=== PATIENT | male | born 1995 | race Caucasian/White ===

== ENCOUNTER 2018-12-16 13:52 | Emergency (ER) | payer OTHER ==
[2018-12-16] MEDS ORDERED: HYDROmorphONE/DILAUDID 2 MG/ML INJ IVP ONE ×2 (14:16→17:37)
[2018-12-16] MEDS ORDERED: NS 500 ML IV ONE (14:19)
--- NOTE | 2018-12-16 14:29 | EDPHY ---
H & P Time Seen by Provider: 12/16/18 14:03 HPI/ROS: HPI Ski accident, right shoulder pain, right back pain. 23-year-old male by ambulance. He was skiing at the [email or web address]. He tripped over his skis, fell forward impacting his right posterior lateral shoulder. He complains of isolated pain to the right posterior lateral shoulder as well as some paraspinal pain upper thoracic in adjacent to his right scapula. He denies hitting his head. He was wearing a helmet. No loss of consciousness. He denies any neck pain. Denies any other extremity pain. No loss of sensation or weakness in his extremities. An IV was established by EMS. He received 100 mcg of IV fentanyl and route. ROS: Constitutional: No fever, no chills. No weakness. Eyes: No discharge. No changes in vision. ENT: No sore throat. No nasal congestion or rhinorrhea. Respiratory: No cough. No shortness of breath. Cardiac: No chest pain, no palpitations. Gastrointestinal: No abdominal pain, no vomiting, no diarrhea. Genitourinary: No hematuria. No dysuria or increased frequency with urination. Musculoskeletal: As above. No neck pain. As above. Skin: No rashes. Neurological: No headache. No focal weakness or altered sensation. Past medical history: Hypertrophic cardiomyopathy. He is not currently on any medications. Social history: Nonsmoker. Here by himself. No alcohol. Physical Exam: General Appearance: Alert, no distress. He is in a cervical collar. This patient is responding to questions appropriately and in full sentences. This patient appears well-hydrated and well-nourished. Head: Normocephalic atraumatic. Face: Facial bones are stable on palpation. Eyes: Pupils equal and round and reactive to light, no pallor or injection. No lid erythema or edema. ENT, Mouth: Mucous membranes moist. Dentition is intact. No malocclusion of the jaw. No tongue lacerations or abrasions. Pharynx is clear. The bilateral nasal canals are clear. No septal hematoma. Respiratory: There are no retractions, lungs are clear to auscultation with good air movement bilaterally. Chest wall is stable to AP and lateral palpation. Cardiovascular: Regular rate and rhythm. No murmur. Gastrointestinal: Abdomen is soft and nontender, no masses, bowel sounds normal. Neurological: Motor sensory function is intact. Cranial nerves are normal. Cerebellar function intact. Skin: Warm and dry, no rashes. No lacerations, abrasions or contusions. Musculoskeletal: Neck is supple and nontender. The trachea is midline. No midline cervical, thoracic, lumbar or sacral tenderness on palpation. No flank tenderness on palpation. He does have some paraspinal and para scapular pain at the level of T7 and T8. No bony step-off or deformity noted on palpation of this area. He has a superficial abrasion noted over the posterior lateral aspect of the right shoulder. He does have some mild tenderness on palpation over the right AC joint. No obvious deformity on palpation of this area. The glenohumeral joint does appear intact. The proximal humerus is nontender on palpation. The axillary nerve distribution is intact. The right upper extremity is neurovascularly intact. Extremities are symmetrical, full range of motion except noted. All joints in the bilateral upper and bilateral lower extremities range without pain or impingement except. No tenderness on palpation of the long bones in the bilateral upper and bilateral lower extremities except noted. Psychiatric: No agitation. No depression. Database: EKG: Imaging: CT chest and thorax with IV contrast: Significant for transverse process fractures at T7 and T8. No compression fracture. No other significant pathology seen. Results were discussed with staff radiologist Dr. Luis F Lindsey. He recommends MRI of the thoracic spine and an isolated right shoulder x-ray to further evaluate. MRI of thoracic spine: Transverse process fracture on the right side T7 and T8 as noted above on CT. Otherwise unremarkable study. No cord involvement. Results were discussed with staff radiologist Dr. Luis F Lindsey. Right shoulder x-ray series: probable type to AC joint separation. Interpreted by me. Procedures: Emergency department course: Triage vital signs reviewed and are normal. IV was established by EMS. After my evaluation the patient received 0.5 mg of IV hydromorphone for pain control. He will be started on IVs normal saline and given 500 cc of IV normal saline. CT chest with IV contrast will be obtained to evaluate for scapular versus spinal injury as well as to evaluate the right shoulder. 3:20 p.m., patient re-evaluated, comfortable at this time. Results of his CT scan discussed with him. Need for right shoulder x-ray series as well as MRI of thoracic spine discussed. He endorses. 5:30 p.m., the patient was given 30 mg of IV Toradol and another 0.5 mg of IV hydromorphone for pain control. We are currently awaiting MRI results. 5:35 p.m., spoke with Dr. Silver Huitron Of the neuro spine service. Case reviewed with him in detail. He feels the patient can be discharged with a [place] brace and follow up with either their service or his primary care physician. Diagnosis of possible low-grade right shoulder AC joint sprain discussed as well. The right upper extremity is neurovascular intact. Patient re-evaluated at 5:45 p.m., repeat neurologic Assessment is nonfocal. His pain is currently well controlled. Plan for discharge in [place] brace discussed and follow-up as noted above. Patient feels comfortable with this. He will be fitted for the [place] brace in the emergency department and then discharged. Return to emergency department precautions were reviewed with him. All of his questions were answered. He was discharged from the emergency department in good condition with his friend who is driving. The patient was contacted this afternoon on December 18. Results of his right shoulder x-ray discussed with him. He will follow up with his life insurance specialist for re-evaluation when he returns home to [place]. He is on his way there now. He will pick pulling machine tender a sling in the emergency department shortly. He is feeling better and currently has no significant complaints. Please see case management note. Differential Diagnosis: The differential diagnosis on this patient includes but is not limited to right scapular fracture, right posterior rib fractures, right shoulder injury. This represents a partial list of diagnoses considered. These considerations are based on history, physical exam, past history, reassessment and diagnostic testing. Smoking Status: Never smoked Constitutional: Initial Vital Signs Temperature (C) 37.1 C 12/16/18 13:52 Heart Rate 69 12/16/18 13:52 Respiratory Rate 14 12/16/18 13:52 Blood Pressure 129/73 H 12/16/18 13:52 O2 Sat (%) 98 12/16/18 13:52 O2 Delivery Mode Room Air Allergies/Adverse Reactions: cotton wood Allergy (Uncoded 12/16/18 13:59) Home Medications: Medication Instructions Recorded Hydrocodone/APAP 5/325 [Cutler 1 - 2 tab PO Q4-6PRN PRN #14 tab 12/16/18 5/325 (*)] Medical Decision Making - Data Points Medications Given: Discontinued Medications Hydrocodone Bitart/Acetaminophen ([place] 5/325mg Prepack#6) 1 btl TAKEHOME EDNOW ONE Stop: 12/16/18 18:23 Last Admin: 12/16/18 18:51 Dose: 1 btl Hydromorphone HCl (Dilaudid) 0.5 mg IVP EDNOW ONE Stop: 12/16/18 14:17 Last Admin: 12/16/18 14:21 Dose: 0.5 mg Hydromorphone HCl (Dilaudid) 0.5 mg IVP EDNOW ONE Stop: 12/16/18 17:38 Last Admin: 12/16/18 17:43 Dose: 0.5 mg Sodium Chloride (Ns) 500 mls @ 0 mls/hr IV EDNOW ONE; Wide Open PRN Reason: Protocol Stop: 12/16/18 14:20 Last Admin: 12/16/18 14:21 Dose: 500 mls Ketorolac Tromethamine (Toradol) 30 mg IVP EDNOW ONE Stop: 12/16/18 17:38 Last Admin: 12/16/18 17:43 Dose: 30 mg Point of Care Test Results: Chemistry 12/16/18 14:20 POC Sodium 142 mEq/L mEq/L (135-145) POC Potassium 3.7 mEq/L mEq/L (3.3-5.0) POC Chloride 104 mEq/L mEq/L (97-110) POC BUN 21 mg/dL mg/dL (7-23) POC Creatinine 1.3 mg/dL mg/dL (0.7-1.3) POC Glucose 94 mg/dL mg/dL (70-100) ISTAT H&H 12/16/18 14:20 POC Hgb 16.7 gm/dL gm/dL (13.7-17.5) POC Hct 49 % % (40-51) Departure - Departure Disposition: Home, Routine, Self-Care Clinical Impression: Sprain of right shoulder, Fracture of transverse process of thoracic vertebra, Possible right AC joint sprain Condition: Good Instructions: Rib Fracture (ED) Additional Instructions: Read and follow provided instructions. Follow-up with your primary care physician or orthopedic spine for re- evaluation as discussed in 2-3 days. You can start taking ibuprofen tomorrow morning. Ibuprofen dosin mg every 6 hours with meals for the next 3 days only. Take only as needed for pain. Take narcotic pain medications as prescribed. Do not drive while taking this medication. Return to the emergency department for worsening pain, loss of sensation or weakness in your extremities, shortness of breath or other serious concerns. Referrals: Patient,NotPresent [Unknown] - As per Instructions Lexx Tay MD [Medical Doctor] - As per Instructions Prescriptions: Hydrocodone/APAP 5/325 [Cutler 5/325 (*)] 1 - 2 tab PO Q4-6PRN PRN #14 tab PRN Reason: Pain, Moderate
[2018-12-16] MEDS ORDERED: IOPAMIDOL (ISOVUE 370) 100 ML BTL IV ONE (14:44)
[2018-12-16] MEDS ORDERED: KETOROLAC 30 MG/1 ML SDV IVP ONE (17:37)
[2018-12-16] MEDS ORDERED: HYDROCOD/APAP 5/325 PREPACK#6 BTL TAKEHOME ONE (18:22)
[2018-12-16 20:38] VITALS: BP 117/62
--- NOTE | 2018-12-18 15:28 | ASMTCMCOM ---
CM Note CM Note Notes: CM asked to contact patient to encourage follow up with orthopedics for a non surgical shoulder injury and potential benefit of shoulder sling. This CM contacted patient to offer referral for orthopedic follow up. Patient states that he is returning to [place] next week and will likely follow up then. Patient is in route to [facility] to brain picker his MRI report at medical records. I have provided patient with a shoulder sling and a CD with his shoulder xray. Patient has CM contact information for further questions Date Signed: 12/18/2018 03:28 PM Electronically Signed By:Kristen Lopez RN
== END 2018-12-16 20:37 | disposition home or self-care (01) ==
DX: S43.401A Unspecified sprain of right shoulder joint, initial encounter (principal); S22.068A Other fracture of T7-T8 thoracic vertebra, initial encounter for closed fracture; Y93.23 Activity, snow (alpine) (downhill) skiing, snowboarding, sledding, tobogganing and snow tubing; E86.9 Volume depletion, unspecified; V00.321A Fall from snow-skis, initial encounter; Y92.828 Other wilderness area as the place of occurrence of the external cause
CPT/HCPCS: 82435-PO; 82565-PO; 82947-PO; 84132-PO; 84295-PO; 84520-PO; 85014-ER; 96374; J1170; J1885; Q9967